=== PATIENT | male | born 1990 | race Caucasian/White ===

== ENCOUNTER 2024-10-19 10:21 | Emergency (ER) | payer OTHER, MEDICAID ==
[~2024-10-19] VITALS: Ht 177.8 cm; Wt 97.7 kg
[~2024-10-19 10:21] MED LIST: MECL-302 PO; ONDA-243 PO; PANT-47 PO
[2024-10-19] MEDS ORDERED: CIPR2.5D21 RIGHTEYE (11:33)
[2024-10-19 11:41] VITALS: BP 126/66; PULSE 74; RESP 16; TEMP 97.7; O2SAT 97
== END 2024-10-19 11:42 | disposition home or self-care (01) ==
LOC: ER 10:22
DX: H10.89 Other conjunctivitis (principal); Z79.899 Other long term (current) drug therapy
CPT/HCPCS: 99283

== ENCOUNTER 2025-03-22 14:20 | Outpatient (CLI) | payer MEDICARE, MEDICAID ==
[2025-03-22 14:52] LABS: MEAN PLATELET VOLUME 7.7 FL (7.4-10.4); RED CELL DISTRIBUTION WIDTH 12.8 % (11.5-14.5)
[2025-03-22 15:12] LABS: CHOL/HDL RATIO 4.0 (0.00-4.99); CREATININE 1.11 MG/DL (0.60-1.10); LDL CHOLESTEROL 125 MG/DL (50-100); TOTAL CARBON DIOXIDE 25.3 MMOL/L (24-32); eGFR 75 ML/MIN
[2025-03-24 11:11] LABS: PSA, ULTRASENSITIVE W/O SERIAL 1.300 ng/mL (0.000-4.000); TESTOSTERONE, SERUM 886 ng/dL (264-916)
[2025-03-28 09:19] LABS: TESTOSTERONE, FREE, DIRECT 8.7 pg/mL (8.7-25.1)
== END 2025-03-22 23:59 | disposition home or self-care (01) ==
LOC: RAD 14:20
PROVIDERS: ATTEND Nurse Practitioner
DX: N40.0 Benign prostatic hyperplasia without lower urinary tract symptoms (principal); E03.9 Hypothyroidism, unspecified; E29.8 Other testicular dysfunction; R79.89 Other specified abnormal findings of blood chemistry
CPT/HCPCS: 36415; 80053; 80061; 83036; 84153; 84402; 84403; 84439; 84443; 85025

== ENCOUNTER 2025-05-20 09:53 | Emergency (ER) | payer MEDICARE, MEDICAID ==
[~2025-05-20] VITALS: Ht 177.8 cm; Wt 98.4 kg
[2025-05-20 10:05] VITALS: BP 124/82; PULSE 104; RESP 16; O2SAT 96
[2025-05-20] MEDS ORDERED: MUPI22OI30 TOP (10:41)
--- NOTE | 2025-05-20 10:41 | Physician Documentation ---
History of Present Illness ~ Chief Complaint: Thermal Burn Stated Complaint: SUNBURN ON LEG Time Seen by MD: 10:18 OK to notify your PCP?: Yes Primary Medical Doctor: Pulse Source: patient Mode of Arrival: POV Exam Limitations: no limitations HPI 35-year-old male with chief complaint sunburn to his right and left leg. [place]creen. The distribution of the sunburn on his right leg stops right at his swim trunks and the distribution of the sunburn on his left leg he states stops right at his ankle. Pre arrival treatment with aloe vera and Neosporin. He just started to get concerned about possible infection due to the redness and is requesting a note for work. Tetanus within 5 years?: Yes Medication Reconciliation Allergies: Coded Allergies: No Known Allergies (Unverified , 10/19/24) Scheduled Meclizine HCl (Meclizine HCl), 1 TAB PO TID PRN Pantoprazole Sodium (PROTONIX tablet), 1 TABLET PO DAILY Scheduled PRN ONDANSETRON ODT 4mg tablet (Ondansetron Odt), 4 MG PO Q8HPRN PRN for nausea/vomiting Past Medical History Past Medical History: BPH Past Surgical History: no surgical history Alcohol Use: None Drug Use: none Lives with: Family Lives In: Home Occupation: employed Review of Systems All Other Systems at this time: Reviewed and Negative Physical Exam Vital Signs: Temperature: 98.4, Source: Oral, Heart Rate: 104, Respiratory Rate: 16, BP: 124/82, Pulse Oximetry: 96, Weight: 98.400 Oxygen Flow Rate: 0 Physical Exam General Appearance: Alert, WD/WN. NAD. HEENT: NCAT, PERRL, EOMI. Neck: Supple, trachea midline. Cardiovascular: RRR. No m/r/g. Lungs: CTAB. Breathing unlabored Extremities: Pedal pulses 2+ bilaterally no edema Skin: Warm/dry, normal color. Erythema right medial leg that follows a very well defined distribution from the medial foot up to the distal thigh, at the proximal aspect of the erythema there is a well-defined straight line consistent with where his short line was. Distal area of erythema there is a blister that has still intact and there is another blister that has been unroofed in the wound bed is beefy red, wound bed is dermis, no odor, no drainage. Erythema left medial ankle and foot, no blisters, no wounds. Neurological: Alert and oriented x4, normal gait. Psychiatric: Affect congruent with mood. Progress Results/Orders Results/Orders Orders - RANDY ALCALA General Nursing Order (05/20/25 10:31) Completed Orders - RANDY ALCALA Mupirocin Ointment (Bactroban Ointment) (05/20/25 10:31) Vital Signs 05/20/25 10:05 Temp 98.4 Pulse 104 Resp 16 B/P (MAP) 124/82 Pulse Ox 96 O2 Flow Rate 0 Medical Decision Making Additional information obtaine: N/A Findings n/a Differential Dx:Considerations: Include: Acidosis, Burn-Partial thickness, Burn-Full thickness, Carbon monoxide poisoning, Hypovolemia, Pneumonia, Pneumonitis, Pulmonary thermal injury, Renal failure, Respiratory failure, Rhabdomyolysis, Sepsis, SIRS, Upper airway obstruction, Other Differential Diagnosis No evidence at this time for cellulitis the distribution of the erythema is well defined consistent with a sunburn Departure Time of Disposition: 10:41 Disposition: 01 HOME / SELF CARE / HOMELESS Impression: Primary Impression: Sunburn, second degree Condition: Stable Discharge Instructions: Burn Care, Adult Additional Instructions: APPLY THE BACTROBAN OINTMENT TO THE OPEN WOUND AND BLISTER ONLY APPLY THE ALOE TO THE OTHER AREAS, YOU CAN ALSO APPLY SILVADENE CREAM BUT THE STUDIES ARE VARIABLE ON THIS. THERE IS ALSO SOMETHING CALLED MANUKA HONEY WHICH WOULD BE EVEN PREFERABLE TO THE BACTROBAN FOR THE WOUNDS, BUT THIS IS NOT PRESCRIPTION SO YOU WOULD HAVE PURCHASE (IT IS SOLD AT NUMEROUS PLACES, EVEN Potential) IF INCREASING PAIN, FEVER, OR ANY CONCERN FOR INFECTION RETURN TO ER. Departure Forms: Excuse form Work or School Excused From: Work Excuse beginning now through the following date: May 22, 2025 May Return but still avoid physical Activity from now until: May 23, 2025 Referrals: NO PRIMARY CARE PROVIDER (PCP) Prescriptions Mupirocin* (Bactroban*) 22 Gm Tube 1 APPLIC TOP Q8H for 7 Days, #22 GM apply to affected area RIGHT LOWER LEG Prov: RANDY ALCALA 05/20/25 Education Educated: Patient Educated regarding: diagnosis, treatment, need for follow up Signature Scribe Signature: X Attestation: RANDY HUERTA May 20, 2025 10:41
[2025-05-20 11:30] VITALS: TEMP 98.4
== END 2025-05-20 11:30 | disposition home or self-care (01) ==
LOC: ER 09:54
DX: L55.1 Sunburn of second degree (principal)
CPT/HCPCS: 16020; 99282; A6258; A6446